=== PATIENT | male | born 1940 | race Caucasian/White ===

== ENCOUNTER 2017-08-01 20:29 | Inpatient (IN) ==
[2017-08-01] MEDS ORDERED: methylPREDNISolone SOD SUC 125 MG/2 ML VIAL IV STA (21:00)
[2017-08-01] MEDS ORDERED: ORPHENADRINE 60 MG/2 ML VIAL IV STA (21:00)
[2017-08-01] MEDS ORDERED: MEPERIDINE 25 MG/1 ML VIAL IV STA (21:00)
[2017-08-01] MEDS ORDERED: ONDANSETRON 4 MG/2 ML VIAL IV STA (21:00)
[2017-08-01 22:11] LABS: Basophils % 0.3 % (0.0-0.8); Eosinophils % 0.1 % (0.00-10.9); Hemoglobin 13.3 GM/DL (14.0-18.0); Immature Granulocytes % 1.2 %; Immature Granulocytes Absolute 0.13 #; Lymphocytes # 0.9 10*3/uL (1.4-4.0); Lymphocytes % 8.6 % (21.2-54.2); Mean Corpuscular HGB Conc 32.4 GM/DL (32-36); Mean Corpuscular Hemoglobin 31 PG (27-34); Mean Corpuscular Volume 96.7 FL (87-102); Mean Platelet Volume 11.2 FL (9.6-12.0); Monocytes # 1.6 10*3/uL (0.11-0.8); Monocytes % 14.3 % (1.7-12.7); Neutrophils # 8.3 10*3/uL (1.4-7.4); Neutrophils % 75.5 % (38.7-73.9); Platelet Count 244 T/CUMM (130-400); Red Blood Count 4.24 MC/CUMM (3.8-5.5); Red Cell Distribution Width 13.4 % (9.3-17.3)
[2017-08-01 22:20] LABS: PT Patient Result 10.7 SECS; Partial Thromboplastin Time 25.7 SECS (0-40)
[2017-08-01 22:40] LABS: Alanine Aminotransferase 37 U/L (16-61); Albumin 3.2 G/DL (3.4-5.0); Alkaline Phosphatase 109 U/L (45-117); Aspartate Amino Transferase 24 U/L (0-37); Blood Urea Nitrogen 34 MG/DL (7-18); Calcium 10.1 MG/DL (8.5-10.1); Glucose 124 MG/DL (74-106); Osmolality,Calculated 274.4 MOS/KG (273-304); Potassium 4.9 MMOL/L (3.5-5.1); Sodium 133 MMOL/L (136-145); Total Protein 7.3 G/DL (6.4-8.3); Troponin I Only < 0.015 NG/ML (0.00-0.045)
[2017-08-01] MEDS ORDERED: SODIUM CHLORIDE 0.9% 1,000 ML IV STA (22:49)
[2017-08-02] MEDS ORDERED: ONDANSETRON 4 MG/2 ML VIAL IV PRN (01:11)
[2017-08-02] MEDS ORDERED: ALBUTEROL/IPRATROPIUM 3 ML NEB RESP TX PRN (01:11)
[2017-08-02] MEDS ORDERED: HYDROmorphone 2 MG/1 ML VIAL IV PRN (01:11)
[2017-08-02] MEDS: tiZANidine 4 MG TABLET PO SCH ×3 (09:37→21:02)
[2017-08-02] MEDS ORDERED: traMADol 50 MG TABLET PO PRN (09:39)
[2017-08-02] MEDS ORDERED: NEBIVOLOL 5 MG TABLET PO SCH ×2 (09:45→17:00)
[2017-08-02] MEDS ORDERED: CALCIUM ACETATE 667 MG CAPSULE PO SCH ×2 (09:45→16:30)
[2017-08-02] MEDS ORDERED: GABAPENTIN 300 MG CAPSULE PO SCH (10:00)
[2017-08-02] MEDS ORDERED: MAGNESIUM OXIDE 400 MG TABLET PO SCH ×2 (10:00→17:00)
[2017-08-02] MEDS ORDERED: ALLOPURINOL 100 MG TABLET PO SCH (10:00)
[2017-08-02] MEDS ORDERED: methylPREDNISolone SOD SUC 125 MG/2 ML VIAL IV SCH (10:00)
[2017-08-02] MEDS ORDERED: MYCOPHENOLATE MOFETIL 250 MG CAPSULE PO SCH ×4 (11:30→21:00)
[2017-08-02] MEDS ORDERED: CYANOCOBALAMIN 1000 MCG/1 ML VIAL IM SCH (12:00)
[2017-08-02] MEDS: ESCITALOPRAM 10 MG TABLET PO SCH (12:34)
[2017-08-02] MEDS: LIDOCAINE 5% PATCH TRANSDERM SCH (12:41)
[2017-08-02] MEDS: PANTOPRAZOLE 40 MG TABLET PO SCH (13:00)
[2017-08-02] MEDS: GABAPENTIN 300 MG CAPSULE PO SCH ×2 (15:55→22:20)
[2017-08-02] MEDS: ALLOPURINOL 100 MG TABLET PO SCH (17:22)
[2017-08-02] MEDS: methylPREDNISolone SOD SUC 40 MG/1 ML VIAL IV SCH (21:02)
[2017-08-03 06:05] LABS: Basophils % 0.1 % (0.0-0.8); Hematocrit 35.6 VOL% (42.0-52.0); Hemoglobin 12.2 GM/DL (14.0-18.0); Immature Granulocytes % 0.8 %; Immature Granulocytes Absolute 0.08 #; Lymphocytes # 0.7 10*3/uL (1.4-4.0); Lymphocytes % 6.4 % (21.2-54.2); Mean Corpuscular HGB Conc 34.3 GM/DL (32-36); Mean Corpuscular Hemoglobin 32 PG (27-34); Mean Corpuscular Volume 93.7 FL (87-102); Monocytes # 0.5 10*3/uL (0.11-0.8); Monocytes % 4.6 % (1.7-12.7); Neutrophils # 8.9 10*3/uL (1.4-7.4); Neutrophils % 88.1 % (38.7-73.9); Platelet Count 248 T/CUMM (130-400); White Blood Count 10.1 T/CUMM (4-12)
[2017-08-03 06:21] LABS: Calcium 9.7 MG/DL (8.5-10.1); Osmolality,Calculated 287.8 MOS/KG (273-304); Potassium 4.7 MMOL/L (3.5-5.1)
[2017-08-03] MEDS: tiZANidine 4 MG TABLET PO SCH (09:40)
[2017-08-03] MEDS: GABAPENTIN 300 MG CAPSULE PO SCH (09:41)
[2017-08-03] MEDS: ESCITALOPRAM 10 MG TABLET PO SCH (09:42)
[2017-08-03] MEDS: PANTOPRAZOLE 40 MG TABLET PO SCH (09:42)
[2017-08-03] MEDS: LIDOCAINE 5% PATCH TRANSDERM SCH (09:43)
[2017-08-03] MEDS: methylPREDNISolone SOD SUC 40 MG/1 ML VIAL IV SCH (09:44)
[2017-08-03 11:03] VITALS: BP 111/67
[2017-08-03] MEDS: ALLOPURINOL 100 MG TABLET PO SCH (12:35)
== END 2017-08-03 13:30 | disposition home or self-care (01) | DRG 552 ==
LOC: N.ED 20:29 → N.EDINP 08-02 01:09 → N.3E 08-02 02:13
PROVIDERS: ADMIT Internal Medicine; ATTEND Internal Medicine

== ENCOUNTER 2018-05-10 22:10 | Inpatient (IN) ==
[2018-05-10] MEDS ORDERED: SODIUM CHLORIDE 0.9% 1,000 ML IV STA (22:19)
[2018-05-10] MEDS ORDERED: ACETAMINOPHEN 500 MG TABLET PO STA (22:19)
[2018-05-10 23:30] LABS: Basophils % 0.2 % (0.0-0.8); Hematocrit 42.6 VOL% (42.0-52.0); Hemoglobin 13.6 GM/DL (14.0-18.0); Immature Granulocytes % 0.6 %; Immature Granulocytes Absolute 0.09 #; Lymphocytes % 6.8 % (21.2-54.2); Mean Corpuscular HGB Conc 31.9 GM/DL (32-36); Mean Corpuscular Hemoglobin 32 PG (27-34); Mean Corpuscular Volume 99.3 FL (87-102); Mean Platelet Volume 10.6 FL (9.6-12.0); Monocytes # 1.9 10*3/uL (0.11-0.8); Monocytes % 13.2 % (1.7-12.7); Neutrophils # 11.2 10*3/uL (1.4-7.4); Neutrophils % 79.2 % (38.7-73.9); Platelet Count 165 T/CUMM (130-400); Red Blood Count 4.29 MC/CUMM (3.8-5.5); Red Cell Distribution Width 13.8 % (9.3-17.3); White Blood Count 14.1 T/CUMM (4-12)
[2018-05-11 00:06] LABS: Bilirubin,Total 1.84 MG/DL (0.2-1.0); Calcium 10.2 MG/DL (8.5-10.1); Total Protein 7.9 G/DL (6.4-8.3)
[2018-05-11 00:07] LABS: Albumin 3.4 G/DL (3.4-5.0); Osmolality,Calculated 271.5 MOS/KG (273-304); Potassium 4.5 MMOL/L (3.5-5.1)
[2018-05-11] MEDS ORDERED: ONDANSETRON 4 MG/2 ML VIAL IV PRN (00:22)
[2018-05-11] MEDS ORDERED: LEVOFLOXACIN INJ 750 MG in PREMIX 1 EACH IV STA (00:22)
[2018-05-11] MEDS ORDERED: ACETAMINOPHEN 325 MG TABLET PO PRN (00:22)
[2018-05-11] MEDS: DEXTROSE 5% NACL 0.45% 1,000 ML IV SCH ×2 (01:50→10:00)
[2018-05-11] MEDS: PANTOPRAZOLE 40 MG TABLET PO SCH (08:24)
[2018-05-11] MEDS: DOCUSATE SODIUM 100 MG CAPSULE PO SCH ×2 (08:24→20:17)
[2018-05-11] MEDS: CYCLOBENZAPRINE 10 MG TABLET PO PRN ×2 (08:24→20:17)
[2018-05-11 08:48] LABS: Basophils % 0.2 % (0.0-0.8); Eosinophils % 0.3 % (0.00-10.9); Hematocrit 41.4 VOL% (42.0-52.0); Immature Granulocytes % 0.5 %; Immature Granulocytes Absolute 0.06 #; Lymphocytes # 1.5 10*3/uL (1.4-4.0); Lymphocytes % 13.2 % (21.2-54.2); Mean Corpuscular HGB Conc 31.4 GM/DL (32-36); Mean Corpuscular Hemoglobin 32 PG (27-34); Monocytes # 1.5 10*3/uL (0.11-0.8); Neutrophils # 8.3 10*3/uL (1.4-7.4); Neutrophils % 72.8 % (38.7-73.9); Platelet Count 160 T/CUMM (130-400); Red Cell Distribution Width 13.8 % (9.3-17.3); White Blood Count 11.4 T/CUMM (4-12)
[2018-05-11 09:23] LABS: Calcium 9.3 MG/DL (8.5-10.1); Osmolality,Calculated 269.5 MOS/KG (273-304); Potassium 3.6 MMOL/L (3.5-5.1)
[2018-05-11] MEDS: CALCIUM ACETATE 667 MG CAPSULE PO SCH ×2 (10:00→16:01)
[2018-05-11] MEDS: SODIUM CHLORIDE 0.9% 1,000 ML IV SCH (11:30)
[2018-05-11 11:52] LABS: Sedimentation Rate-Westergren 66 MM/HR (0-20)
[2018-05-11 15:26] LABS: Appearance,CSF Clear; Lymphocytes,CSF 100 %; Red Blood Cell,CSF 5 C/CUMM; White Blood Cell,CSF 2 C/CUMM
[2018-05-11] MEDS: GABAPENTIN 300 MG CAPSULE PO SCH ×2 (16:02→20:17)
[2018-05-11] MEDS: cefTRIAXone 2,000 MG in SYRINGE 1 EACH IV SCH (16:03)
[2018-05-11] MEDS: methylPREDNISolone SOD SUC 125 MG/2 ML VIAL IV SCH (16:11)
[2018-05-11] MEDS: MAGNESIUM OXIDE 400 MG TABLET PO SCH (20:17)
[2018-05-11] MEDS: COLESTIPOL 1 GM TABLET PO SCH (20:17)
[2018-05-11] MEDS: MYCOPHENOLATE MOFETIL 250 MG CAPSULE PO SCH (20:17)
[2018-05-12] MEDS: cefTRIAXone 2,000 MG in SYRINGE 1 EACH IV SCH ×2 (04:15→15:20)
[2018-05-12] MEDS: SODIUM CHLORIDE 0.9% 1,000 ML IV SCH (04:17)
[2018-05-12 05:16] LABS: Hematocrit 38.8 VOL% (42.0-52.0); Hemoglobin 12.4 GM/DL (14.0-18.0); Immature Granulocytes % 0.7 %; Immature Granulocytes Absolute 0.05 #; Lymphocytes # 0.5 10*3/uL (1.4-4.0); Lymphocytes % 6.9 % (21.2-54.2); Mean Corpuscular Hemoglobin 32 PG (27-34); Mean Platelet Volume 11.1 FL (9.6-12.0); Monocytes # 0.3 10*3/uL (0.11-0.8); Monocytes % 4.5 % (1.7-12.7); Neutrophils # 6.7 10*3/uL (1.4-7.4); Neutrophils % 87.9 % (38.7-73.9); Platelet Count 170 T/CUMM (130-400); Red Blood Count 3.92 MC/CUMM (3.8-5.5); Red Cell Distribution Width 13.6 % (9.3-17.3); White Blood Count 7.6 T/CUMM (4-12)
[2018-05-12 05:43] LABS: Calcium 9.2 MG/DL (8.5-10.1); Osmolality,Calculated 275.4 MOS/KG (273-304); Potassium 4.4 MMOL/L (3.5-5.1)
[2018-05-12] MEDS: methylPREDNISolone SOD SUC 125 MG/2 ML VIAL IV SCH (06:00)
[2018-05-12] MEDS: MYCOPHENOLATE MOFETIL 250 MG CAPSULE PO SCH ×2 (09:41→20:12)
[2018-05-12] MEDS: GABAPENTIN 300 MG CAPSULE PO SCH ×3 (09:41→20:12)
[2018-05-12] MEDS: PANTOPRAZOLE 40 MG TABLET PO SCH (09:41)
[2018-05-12] MEDS: COLESTIPOL 1 GM TABLET PO SCH ×2 (09:42→20:13)
[2018-05-12] MEDS: POLYCARBOPHIL 625 MG TABLET PO SCH (09:42)
[2018-05-12] MEDS: MAGNESIUM OXIDE 400 MG TABLET PO SCH ×2 (09:42→20:13)
[2018-05-12] MEDS: ESCITALOPRAM 10 MG TABLET PO SCH (09:42)
[2018-05-12] MEDS: ALLOPURINOL 300 MG TABLET PO SCH (09:43)
[2018-05-12] MEDS: NEBIVOLOL 5 MG TABLET PO SCH (09:43)
[2018-05-12] MEDS: CALCIUM ACETATE 667 MG CAPSULE PO SCH ×2 (09:43→16:56)
[2018-05-12] MEDS: predniSONE 5 MG TABLET PO SCH (09:43)
[2018-05-12] MEDS: DOCUSATE SODIUM 100 MG CAPSULE PO SCH ×2 (09:43→20:13)
[2018-05-12] MEDS: methylPREDNISolone SOD SUC 40 MG/1 ML VIAL IV SCH (15:19)
[2018-05-13] MEDS: methylPREDNISolone SOD SUC 40 MG/1 ML VIAL IV SCH (03:35)
[2018-05-13] MEDS: cefTRIAXone 2,000 MG in SYRINGE 1 EACH IV SCH (03:36)
[2018-05-13] MEDS: SODIUM CHLORIDE 0.9% 1,000 ML IV SCH ×3 (03:40→03:42)
[2018-05-13 06:01] LABS: Basophils % 0.1 % (0.0-0.8); Hematocrit 37.1 VOL% (42.0-52.0); Hemoglobin 11.9 GM/DL (14.0-18.0); Immature Granulocytes % 0.6 %; Immature Granulocytes Absolute 0.08 #; Lymphocytes # 0.7 10*3/uL (1.4-4.0); Lymphocytes % 5.1 % (21.2-54.2); Mean Corpuscular HGB Conc 32.1 GM/DL (32-36); Mean Corpuscular Hemoglobin 32 PG (27-34); Mean Corpuscular Volume 98.7 FL (87-102); Monocytes # 0.7 10*3/uL (0.11-0.8); Monocytes % 5.2 % (1.7-12.7); Neutrophils # 11.4 10*3/uL (1.4-7.4); Platelet Count 197 T/CUMM (130-400); Red Blood Count 3.76 MC/CUMM (3.8-5.5); Red Cell Distribution Width 13.6 % (9.3-17.3); White Blood Count 12.8 T/CUMM (4-12)
[2018-05-13 06:17] LABS: Calcium 9.2 MG/DL (8.5-10.1); Osmolality,Calculated 290.4 MOS/KG (273-304); Potassium 4.3 MMOL/L (3.5-5.1)
[2018-05-13] MEDS: ESCITALOPRAM 10 MG TABLET PO SCH (08:41)
[2018-05-13] MEDS: MYCOPHENOLATE MOFETIL 250 MG CAPSULE PO SCH ×2 (08:41→21:18)
[2018-05-13] MEDS: ALLOPURINOL 300 MG TABLET PO SCH (08:41)
[2018-05-13] MEDS: COLESTIPOL 1 GM TABLET PO SCH ×2 (08:41→21:18)
[2018-05-13] MEDS: POLYCARBOPHIL 625 MG TABLET PO SCH (08:41)
[2018-05-13] MEDS: CALCIUM ACETATE 667 MG CAPSULE PO SCH ×2 (08:41→16:24)
[2018-05-13] MEDS: MAGNESIUM OXIDE 400 MG TABLET PO SCH ×2 (08:41→21:18)
[2018-05-13] MEDS: NEBIVOLOL 5 MG TABLET PO SCH (08:42)
[2018-05-13] MEDS: PANTOPRAZOLE 40 MG TABLET PO SCH (08:42)
[2018-05-13] MEDS: GABAPENTIN 300 MG CAPSULE PO SCH ×3 (08:42→21:18)
[2018-05-13] MEDS: predniSONE 5 MG TABLET PO SCH (08:42)
[2018-05-13] MEDS: DOCUSATE SODIUM 100 MG CAPSULE PO SCH ×2 (10:25→21:18)
[2018-05-13] MEDS: predniSONE 20 MG TABLET PO SCH (21:18)
[2018-05-14 06:08] LABS: Basophils % 0.1 % (0.0-0.8); Hematocrit 38.5 VOL% (42.0-52.0); Hemoglobin 12.2 GM/DL (14.0-18.0); Immature Granulocytes % 0.8 %; Immature Granulocytes Absolute 0.08 #; Lymphocytes # 0.5 10*3/uL (1.4-4.0); Lymphocytes % 5.5 % (21.2-54.2); Mean Corpuscular HGB Conc 31.7 GM/DL (32-36); Mean Corpuscular Hemoglobin 31 PG (27-34); Mean Platelet Volume 11.2 FL (9.6-12.0); Monocytes # 0.3 10*3/uL (0.11-0.8); Monocytes % 2.8 % (1.7-12.7); Neutrophils # 8.6 10*3/uL (1.4-7.4); Neutrophils % 90.8 % (38.7-73.9); Platelet Count 217 T/CUMM (130-400); Red Blood Count 3.89 MC/CUMM (3.8-5.5); Red Cell Distribution Width 13.8 % (9.3-17.3); White Blood Count 9.5 T/CUMM (4-12)
[2018-05-14 06:32] LABS: Hypochromasia 1+; Lymphocytes 4 % (20-55); Platelet Estimate Adequate; Segmented Neutrophils 95 % (50-85); Total Cells Counted 100
[2018-05-14 06:39] LABS: Calcium 9.3 MG/DL (8.5-10.1); Osmolality,Calculated 294.3 MOS/KG (273-304)
[2018-05-14] MEDS: predniSONE 20 MG TABLET PO SCH (08:36)
[2018-05-14] MEDS: MYCOPHENOLATE MOFETIL 250 MG CAPSULE PO SCH (08:36)
[2018-05-14] MEDS: ESCITALOPRAM 10 MG TABLET PO SCH (08:36)
[2018-05-14] MEDS: COLESTIPOL 1 GM TABLET PO SCH (08:36)
[2018-05-14] MEDS: GABAPENTIN 300 MG CAPSULE PO SCH (08:36)
[2018-05-14] MEDS: DOCUSATE SODIUM 100 MG CAPSULE PO SCH (08:36)
[2018-05-14] MEDS: NEBIVOLOL 5 MG TABLET PO SCH (08:36)
[2018-05-14] MEDS: MAGNESIUM OXIDE 400 MG TABLET PO SCH (08:37)
[2018-05-14] MEDS: CALCIUM ACETATE 667 MG CAPSULE PO SCH (08:37)
[2018-05-14] MEDS: POLYCARBOPHIL 625 MG TABLET PO SCH (08:37)
[2018-05-14] MEDS: ALLOPURINOL 300 MG TABLET PO SCH (08:37)
[2018-05-14] MEDS: PANTOPRAZOLE 40 MG TABLET PO SCH (08:37)
[2018-05-14 12:46] VITALS: BP 133/90
== END 2018-05-14 10:30 | disposition home or self-care (01) | DRG 552 ==
LOC: EDBD → EDUNIT# → N.EDINP 22:10 → N.ED 22:10 → N.5E 05-11 00:40
PROVIDERS: ADMIT Internal Medicine; ATTEND Internal Medicine

== ENCOUNTER 2022-02-12 17:51 | Inpatient (IN) ==
[2022-02-12 18:08] LABS: Basophils % 0.3 % (0.0-0.8); Eosinophils # 0.1 10*3/uL (0.0-0.87); Eosinophils % 1.2 % (0.00-10.9); Hemoglobin 9.2 GM/DL (14.0-18.0); Immature Granulocytes % 0.9 %; Immature Granulocytes Absolute 0.08 #; Lymphocytes # 2.6 10*3/uL (1.4-4.0); Lymphocytes % 28.2 % (21.2-54.2); Mean Corpuscular HGB Conc 29.7 GM/DL (32-36); Mean Corpuscular Volume 92.5 FL (87-102); Monocytes % 10.9 % (1.7-12.7); Neutrophils % 58.5 % (38.7-73.9); Platelet Count 278 T/CUMM (130-400); Red Blood Count 3.35 MC/CUMM (3.8-5.5); Red Cell Distribution Width 19.5 % (9.3-17.3); White Blood Count 9.3 T/CUMM (4-12)
[2022-02-12 18:33] LABS: Alanine Aminotransferase 26 U/L (16-61); Albumin 3.2 G/DL (3.4-5.0); Alkaline Phosphatase 77 U/L (45-117); Aspartate Amino Transferase 20 U/L (0-37); Blood Urea Nitrogen 42 MG/DL (7-18); Calcium 8.7 MG/DL (8.5-10.1); Carbon Dioxide 18 MMOL/L (21-32); Chloride 111 MMOL/L (98-107); Glucose 128 MG/DL (74-106); Osmolality,Calculated 291.4 MOS/KG (273-304); Potassium 4.4 MMOL/L (3.5-5.1); Sodium 140 MMOL/L (136-145); Total Protein 6.4 G/DL (6.4-8.2)
[2022-02-12] MEDS ORDERED: SODIUM BICARBONATE 50 MEQ/50 ML VIAL IV STA ×2 (18:33→18:50)
[2022-02-12 18:38] LABS: Arterial Base Excess iSTAT -14 MMOL/L (-2.5-2.5); Arterial Bicarbonate iSTAT 14.9 MMOL/L (20-26); Arterial O2 Saturation iSTAT 100 % (95-100); Arterial PCO2 iSTAT 46 MM HG (35-48); Arterial PO2 iSTAT 223 MM HG (80-95); Arterial Total CO2 iSTAT 16 MMO/L (23-27); Arterial pH iSTAT 7.116 (7.35-7.45)
[2022-02-12] MEDS ORDERED: ALBUTEROL 2.5 MG/3 ML NEB RESP TX PRN (18:52)
[2022-02-12] MEDS ORDERED: ACETAMINOPHEN 325 MG TABLET PO PRN (18:53)
[2022-02-12] MEDS ORDERED: ONDANSETRON 4 MG/2 ML VIAL IV PRN (18:53)
[2022-02-12] MEDS: SODIUM CHLORIDE 0.9% 1,000 ML IV SCH (19:16)
[2022-02-12] MEDS: MEROPENEM 500 MG in SODIUM CHLORIDE 0.9% 100 ML IV SCH (20:10)
[2022-02-12] MEDS: DOPamine 800 MG/250 ML PREMIX IV PRN (20:40)
[2022-02-12] MEDS ORDERED: ETOMIDATE 20 MG/10 ML VIAL IV ONE (20:56)
[2022-02-12] MEDS ORDERED: ROCURONIUM 100 MG/10 ML VIAL IV ONE (20:57)
[2022-02-12] MEDS ORDERED: ENOXAPARIN 40 MG/0.4 ML SYRINGE SUBCUT SCH (21:00)
[2022-02-12] MEDS ORDERED: CISATRACURIUM 200 MG in SODIUM CHLORIDE 0.9% 180 ML IV PRN (21:20)
[2022-02-12] MEDS: fentaNYL INJ 1,250 MCG in SODIUM CHLORIDE 0.9% 225 ML IV PRN (21:45)
[2022-02-12 21:47] LABS: ABG Base Excess -8.4 MMOL/L (-2.5-2.5); ABG HCO3 17.6 MMOL/L (20-26); ABG Oxygen Saturation 93.6 % (95-100); ABG PCO2 46.7 MM HG (35-48); ABG PH 7.222 (7.35-7.45); ABG PO2 90.6 MM HG (80-95); ABG TCO2 17.9 MMOL/L (23-27)
[2022-02-12 22:01] LABS: INR 1.2; PT Patient Result 12.8 SECS (10.1-12.1); Partial Thromboplastin Time 25.6 SECS (23.7-32.9)
[2022-02-12 22:26] LABS: Bacteria,Urine Occasional /HPF (Few); Hyaline Casts,Urine 9 /LPF (0-3); Mucus,Urine Occasional /LPF (Occasional); RBC,Urine 44 /HPF (0-4); Squamous Epithelial Cell,Urine Occasional /HPF (0-10); Urine Appearance Clear (Clear); Urine Color Yellow (Yellow); Urine Specific Gravity >= 1.030 (1.001-1.035); Urine pH 5.5 (4.5-8.0)
[2022-02-12 22:27] LABS: Bilirubin,Urine Negative (Negative); Blood, Urine Moderate mg/dL (Negative); Glucose,Urine (UA) Negative (Negative); Ketones,Urine Negative (Negative); Nitrite,Urine Negative (Negative); Protein,Urine 100 mg/dL (Negative); Urine Urobilinogen 0.2 eU/dL (<2.0)
[2022-02-12] MEDS ORDERED: SODIUM BICARBONATE 50 MEQ/50 ML VIAL IV ONE (22:30)
[2022-02-12 22:39] LABS: Alanine Aminotransferase 37 U/L (16-61); Albumin 3.3 G/DL (3.4-5.0); Alkaline Phosphatase 99 U/L (45-117); Amylase 58 U/L (25-115); Aspartate Amino Transferase 50 U/L (0-37); Blood Urea Nitrogen 43 MG/DL (7-18); Calcium 8.3 MG/DL (8.5-10.1); Carbon Dioxide 20 MMOL/L (21-32); Chloride 109 MMOL/L (98-107); Glucose 246 MG/DL (74-106); Osmolality,Calculated 299.3 MOS/KG (273-304); Phosphorous 5.8 MG/DL (2.5-4.9); Potassium 4.7 MMOL/L (3.5-5.1); Sodium 141 MMOL/L (136-145); Total Protein 6.2 G/DL (6.4-8.2)
[2022-02-12] MEDS: MIDAZOLAM DRIP 100 MG/100 ML PREMIX IV PRN (23:19)
[2022-02-12] MEDS: INSULIN REGULAR 100 UNIT/ML IV SCH (23:20)
[2022-02-12 23:35] LABS: ABG Base Excess -5.6 MMOL/L (-2.5-2.5); ABG HCO3 19.7 MMOL/L (20-26); ABG Oxygen Saturation 93.2 % (95-100); ABG PH 7.243 (7.35-7.45); ABG PO2 86.2 MM HG (80-95); ABG TCO2 20.5 MMOL/L (23-27)
[2022-02-12] MEDS: FAMOTIDINE 20 MG/2 ML VIAL IV SCH (23:46)
[2022-02-12] MEDS: MYCOPHENOLATE MOFETIL 250 MG CAPSULE PO SCH (23:51)
[2022-02-12] MEDS: ENOXAPARIN 80 MG/0.8 ML SYRINGE SUBCUT SCH (23:52)
[2022-02-13] MEDS: LEVOFLOXACIN INJ 750 MG/150 ML PREMIX IV SCH
[2022-02-13] MEDS: ALBUTEROL/IPRATROPIUM 3 ML NEB RESP TX SCH ×5 (01:21→18:53)
[2022-02-13] MEDS: INSULIN REGULAR 100 UNIT/ML IV SCH ×6 (01:49→21:19)
[2022-02-13] MEDS ORDERED: SODIUM CHLORIDE 0.9% 500 ML IV ONE (02:35)
[2022-02-13 03:43] LABS: ABG HCO3 20.3 MMOL/L (20-26); ABG Oxygen Saturation 98.8 % (95-100); ABG PCO2 48.5 MM HG (35-48); ABG PH 7.267 (7.35-7.45); ABG TCO2 20.5 MMOL/L (23-27)
[2022-02-13 03:46] LABS: Basophils % 0.2 % (0.0-0.8); Eosinophils % 0.1 % (0.00-10.9); Hematocrit 32.6 VOL% (42.0-52.0); Hemoglobin 9.6 GM/DL (14.0-18.0); Immature Granulocytes % 1.1 %; Immature Granulocytes Absolute 0.16 #; Lymphocytes # 0.7 10*3/uL (1.4-4.0); Lymphocytes % 4.7 % (21.2-54.2); Mean Corpuscular HGB Conc 29.4 GM/DL (32-36); Mean Corpuscular Volume 93.4 FL (87-102); Mean Platelet Volume 10.6 FL (9.6-12.0); Monocytes # 1.2 10*3/uL (0.11-0.8); Monocytes % 7.9 % (1.7-12.7); Platelet Count 271 T/CUMM (130-400); Red Blood Count 3.49 MC/CUMM (3.8-5.5); Red Cell Distribution Width 19.3 % (9.3-17.3); White Blood Count 15.1 T/CUMM (4-12)
[2022-02-13] MEDS ORDERED: LACTATED RINGERS 1,000 ML IV ONE (04:00)
[2022-02-13 04:08] LABS: Bilirubin,Total 0.4 MG/DL (0.20-1.00); Calcium 8.1 MG/DL (8.5-10.1); Potassium 3.7 MMOL/L (3.5-5.1)
[2022-02-13 04:32] LABS: Lymphocytes 2 % (20-55); Platelet Estimate Normal; Total Cells Counted 100
[2022-02-13] MEDS: MEROPENEM 500 MG in SODIUM CHLORIDE 0.9% 100 ML IV SCH ×3 (04:51→20:18)
[2022-02-13] MEDS ORDERED: POTASSIUM CHLORIDE RIDER 20 MEQ/100 ML PREMIX IV ONE ×2 (05:00→16:45)
[2022-02-13 06:09] LABS: Calcium 8.3 MG/DL (8.5-10.1); Osmolality,Calculated 297.8 MOS/KG (273-304); Potassium 3.7 MMOL/L (3.5-5.1)
[2022-02-13] MEDS: SODIUM CHLORIDE 0.9% 1,000 ML IV SCH ×4 (06:09→17:57)
[2022-02-13 06:44] LABS: INR 1.3; Partial Thromboplastin Time 32.8 SECS (23.7-32.9)
[2022-02-13] MEDS: predniSONE 5 MG TABLET PO SCH (09:24)
[2022-02-13] MEDS: MYCOPHENOLATE MOFETIL 250 MG CAPSULE PO SCH (09:55)
[2022-02-13 09:57] LABS: INR 1.3; Partial Thromboplastin Time 34.5 SECS (23.7-32.9)
[2022-02-13 10:00] LABS: Calcium 8.6 MG/DL (8.5-10.1); Osmolality,Calculated 297.1 MOS/KG (273-304); Potassium 3.9 MMOL/L (3.5-5.1)
[2022-02-13 10:05] LABS: Basophils % 0.6 % (0.0-0.8); Eosinophils # 0.1 10*3/uL (0.0-0.87); Eosinophils % 1.6 % (0.00-10.9); Hematocrit 36.1 VOL% (42.0-52.0); Immature Granulocytes % 0.6 %; Immature Granulocytes Absolute 0.02 #; Lymphocytes # 0.2 10*3/uL (1.4-4.0); Lymphocytes % 4.8 % (21.2-54.2); Mean Corpuscular HGB Conc 29.6 GM/DL (32-36); Mean Corpuscular Volume 92.3 FL (87-102); Mean Platelet Volume 10.6 FL (9.6-12.0); Monocytes # 0.2 10*3/uL (0.11-0.8); Monocytes % 4.8 % (1.7-12.7); Neutrophils % 87.6 % (38.7-73.9); Platelet Count 273 T/CUMM (130-400); Red Blood Count 3.91 MC/CUMM (3.8-5.5); Red Cell Distribution Width 19.1 % (9.3-17.3)
[2022-02-13 10:06] LABS: White Blood Count 3.1 T/CUMM (4-12)
[2022-02-13 10:07] LABS: Hemoglobin 10.7 GM/DL (14.0-18.0)
[2022-02-13 10:17] LABS: Band Neutrophils 6 % (0-10); Lymphocytes 9 % (20-55); Microcytosis 1+; Total Cells Counted 100
[2022-02-13 10:18] LABS: Polychromasia Slight
[2022-02-13] MEDS: MEPERIDINE 25 MG/1 ML VIAL IV PRN ×3 (11:16→20:19)
[2022-02-13] MEDS: CISATRACURIUM 10 MG/5 ML VIAL IV PRN ×3 (11:43→20:54)
[2022-02-13] MEDS: DOPamine 800 MG/250 ML PREMIX IV PRN (15:09)
[2022-02-13] MEDS: fentaNYL INJ 1,250 MCG in SODIUM CHLORIDE 0.9% 225 ML IV PRN (15:26)
[2022-02-13 16:05] LABS: Basophils % 0.6 % (0.0-0.8); Eosinophils % 0.6 % (0.00-10.9); Hematocrit 36.3 VOL% (42.0-52.0); Hemoglobin 10.8 GM/DL (14.0-18.0); Immature Granulocytes % 0.6 %; Immature Granulocytes Absolute 0.01 #; Lymphocytes # 0.1 10*3/uL (1.4-4.0); Lymphocytes % 3.1 % (21.2-54.2); Mean Corpuscular HGB Conc 29.8 GM/DL (32-36); Mean Corpuscular Volume 93.1 FL (87-102); Mean Platelet Volume 10.2 FL (9.6-12.0); Monocytes # 0.2 10*3/uL (0.11-0.8); Monocytes % 9.3 % (1.7-12.7); Neutrophils % 85.8 % (38.7-73.9); Platelet Count 227 T/CUMM (130-400); White Blood Count 1.6 T/CUMM (4-12)
[2022-02-13 16:15] LABS: INR 1.3; PT Patient Result 14.6 SECS (10.1-12.1); Partial Thromboplastin Time 34.2 SECS (23.7-32.9)
[2022-02-13 16:24] LABS: Calcium 8.4 MG/DL (8.5-10.1); Osmolality,Calculated 297.8 MOS/KG (273-304); Potassium 3.6 MMOL/L (3.5-5.1)
[2022-02-13 16:24] LABS: Band Neutrophils 8 % (0-10); Lymphocytes 4 % (20-55); Platelet Estimate Adequate; Total Cells Counted 100
[2022-02-13 16:26] LABS: Polychromasia Slight
[2022-02-13] MEDS: MIDAZOLAM DRIP 100 MG/100 ML PREMIX IV PRN (17:30)
[2022-02-13] MEDS: FAMOTIDINE 20 MG/2 ML VIAL IV SCH (20:18)
[2022-02-13] MEDS: ENOXAPARIN 80 MG/0.8 ML SYRINGE SUBCUT SCH (21:59)
[2022-02-13 22:03] LABS: Hematocrit 37.7 VOL% (42.0-52.0); Hemoglobin 11.3 GM/DL (14.0-18.0); Immature Granulocytes % 0.8 %; Immature Granulocytes Absolute 0.02 #; Lymphocytes # 0.1 10*3/uL (1.4-4.0); Lymphocytes % 3.3 % (21.2-54.2); Mean Corpuscular Volume 92.6 FL (87-102); Mean Platelet Volume 10.5 FL (9.6-12.0); Monocytes # 0.3 10*3/uL (0.11-0.8); Monocytes % 13.1 % (1.7-12.7); Neutrophils % 82.8 % (38.7-73.9); Platelet Count 243 T/CUMM (130-400); Red Blood Count 4.07 MC/CUMM (3.8-5.5); White Blood Count 2.4 T/CUMM (4-12)
[2022-02-13 22:14] LABS: INR 1.3; PT Patient Result 14.5 SECS (10.1-12.1); Partial Thromboplastin Time 35.6 SECS (23.7-32.9)
[2022-02-13 22:27] LABS: Calcium 8.4 MG/DL (8.5-10.1); Osmolality,Calculated 298.7 MOS/KG (273-304); Potassium 3.6 MMOL/L (3.5-5.1)
[2022-02-13 22:30] LABS: Band Neutrophils 18 % (0-10); Lymphocytes 1 % (20-55); Nucleated Red Blood Cells 2 /100 WBC (0-5); Total Cells Counted 100
[2022-02-13 22:31] LABS: Platelet Estimate Adequate; Polychromasia Slight
[2022-02-13 22:32] LABS: Hypochromia Slight
[2022-02-13 23:48] LABS: ABG Base Excess -7.1 MMOL/L (-2.5-2.5); ABG HCO3 18.6 MMOL/L (20-26); ABG Oxygen Saturation 91.2 % (95-100); ABG PCO2 41.1 MM HG (35-48); ABG PH 7.281 (7.35-7.45); ABG PO2 70.5 MM HG (80-95); ABG TCO2 17.6 MMOL/L (23-27)
[2022-02-14] MEDS ORDERED: FUROSEMIDE 40 MG/4 ML VIAL IV ONE (00:06)
[2022-02-14] MEDS: ALBUTEROL/IPRATROPIUM 3 ML NEB RESP TX SCH ×4 (00:26→19:33)
[2022-02-14] MEDS: CISATRACURIUM 10 MG/5 ML VIAL IV PRN ×2 (00:51→06:03)
[2022-02-14] MEDS: SODIUM CHLORIDE 0.9% 1,000 ML IV SCH ×4 (02:00→20:29)
[2022-02-14] MEDS: INSULIN REGULAR 100 UNIT/ML IV SCH ×6 (02:14→21:13)
[2022-02-14] MEDS: MEROPENEM 500 MG in SODIUM CHLORIDE 0.9% 100 ML IV SCH ×3 (03:40→20:29)
[2022-02-14] MEDS: DOPamine 800 MG/250 ML PREMIX IV PRN ×3 (03:40→17:34)
[2022-02-14 03:42] LABS: ABG Base Excess -7.3 MMOL/L (-2.5-2.5); ABG HCO3 18.5 MMOL/L (20-26); ABG Oxygen Saturation 96.1 % (95-100); ABG PCO2 40.8 MM HG (35-48); ABG PH 7.279 (7.35-7.45); ABG PO2 94.8 MM HG (80-95); ABG TCO2 17.4 MMOL/L (23-27)
[2022-02-14 03:45] LABS: Basophils % 0.3 % (0.0-0.8); Eosinophils % 0.3 % (0.00-10.9); Hematocrit 38.1 VOL% (42.0-52.0); Hemoglobin 11.4 GM/DL (14.0-18.0); Immature Granulocytes % 0.9 %; Immature Granulocytes Absolute 0.03 #; Lymphocytes # 0.1 10*3/uL (1.4-4.0); Mean Corpuscular HGB Conc 29.9 GM/DL (32-36); Mean Corpuscular Volume 92.5 FL (87-102); Mean Platelet Volume 10.2 FL (9.6-12.0); Monocytes # 0.3 10*3/uL (0.11-0.8); Monocytes % 9.4 % (1.7-12.7); NRBC # 0.02 10*3/uL; Neutrophils % 87.1 % (38.7-73.9); Platelet Count 245 T/CUMM (130-400); Red Blood Count 4.12 MC/CUMM (3.8-5.5); Red Cell Distribution Width 19.2 % (9.3-17.3); White Blood Count 3.5 T/CUMM (4-12)
[2022-02-14 04:05] LABS: INR 1.4; PT Patient Result 15.2 SECS (10.1-12.1); Partial Thromboplastin Time 39.1 SECS (23.7-32.9)
[2022-02-14 04:13] LABS: Calcium 8.1 MG/DL (8.5-10.1); Osmolality,Calculated 298.7 MOS/KG (273-304); Potassium 3.9 MMOL/L (3.5-5.1)
[2022-02-14 04:15] LABS: Band Neutrophils 4 % (0-10); Hypochromia Slight; Lymphocytes 14 % (20-55); Polychromasia Slight; Total Cells Counted 100
[2022-02-14] MEDS ORDERED: MAGNESIUM SULF RIDER 1 GM/100 ML PREMIX IV ONE (04:22)
[2022-02-14] MEDS: MEPERIDINE 25 MG/1 ML VIAL IV PRN (04:35)
[2022-02-14] MEDS: MIDAZOLAM DRIP 100 MG/100 ML PREMIX IV PRN ×2 (08:18→21:48)
[2022-02-14] MEDS ORDERED: LACTATED RINGERS 500 ML IV ONE (08:53)
[2022-02-14] MEDS ORDERED: MAGNESIUM SULF RIDER 2 GM/50 ML PREMIX IV ONE (09:05)
[2022-02-14] MEDS ORDERED: VASOPRESSIN 100 UNITS in SODIUM CHLORIDE 0.9% 95 ML IV PRN (09:30)
[2022-02-14] MEDS: fentaNYL INJ 1,250 MCG in SODIUM CHLORIDE 0.9% 225 ML IV PRN (09:38)
[2022-02-14] MEDS: MINERAL OIL/PETROLATUM OPH OINT 3.5 GM TUBE BOTH EYES SCH ×3 (09:57→20:30)
[2022-02-14 11:48] LABS: Basophils % 0.2 % (0.0-0.8); Eosinophils % 0.2 % (0.00-10.9); Hematocrit 37.2 VOL% (42.0-52.0); Immature Granulocytes % 0.6 %; Immature Granulocytes Absolute 0.04 #; Lymphocytes # 0.1 10*3/uL (1.4-4.0); Lymphocytes % 1.8 % (21.2-54.2); Mean Corpuscular HGB Conc 29.6 GM/DL (32-36); Mean Corpuscular Volume 93.2 FL (87-102); Mean Platelet Volume 10.9 FL (9.6-12.0); Monocytes # 0.6 10*3/uL (0.11-0.8); Monocytes % 8.9 % (1.7-12.7); NRBC # 0.03 10*3/uL; Neutrophils % 88.3 % (38.7-73.9); Platelet Count 243 T/CUMM (130-400); Red Blood Count 3.99 MC/CUMM (3.8-5.5); Red Cell Distribution Width 19.2 % (9.3-17.3); White Blood Count 6.3 T/CUMM (4-12)
[2022-02-14] MEDS: predniSONE 5 MG TABLET PO SCH ×2 (11:57→14:31)
[2022-02-14 11:58] LABS: Anisocytosis Slight; Band Neutrophils 36 % (0-10); Burr Cells Few; Lymphocytes 4 % (20-55); Metamyelocytes 2 %; Platelet Estimate Normal; Total Cells Counted 100
[2022-02-14 11:59] LABS: Macrocytosis Slight
[2022-02-14 12:18] LABS: INR 1.4
[2022-02-14 12:22] LABS: Calcium 7.9 MG/DL (8.5-10.1); Osmolality,Calculated 296.8 MOS/KG (273-304); Potassium 4.9 MMOL/L (3.5-5.1)
[2022-02-14] MEDS ORDERED: EPINEPHrine 1 MG/10 ML SYRINGE IV ONE (12:22)
[2022-02-14] MEDS ORDERED: SODIUM BICARBONATE 50 MEQ/50 ML SYRINGE IV ONE (12:23)
[2022-02-14] MEDS ORDERED: HYDROCORTISONE 100 MG VIAL IV SCH (12:30)
[2022-02-14] MEDS ORDERED: EPINEPHrine 1 MG/ML VIAL ONE (12:49)
[2022-02-14 14:11] LABS: ABG Base Excess -9.3 MMOL/L (-2.5-2.5); ABG PCO2 45.3 MM HG (35-48); ABG PH 7.217 (7.35-7.45); ABG PO2 85.1 MM HG (80-95)
[2022-02-14 14:27] VITALS: BP 185/92
[2022-02-14 14:32] LABS: Basophils % 0.2 % (0.0-0.8); Eosinophils % 0.1 % (0.00-10.9); Hematocrit 36.7 VOL% (42.0-52.0); Hemoglobin 10.8 GM/DL (14.0-18.0); Immature Granulocytes Absolute 0.09 #; Lymphocytes # 0.2 10*3/uL (1.4-4.0); Lymphocytes % 2.2 % (21.2-54.2); Mean Corpuscular HGB Conc 29.4 GM/DL (32-36); Mean Corpuscular Volume 93.9 FL (87-102); Mean Platelet Volume 11.1 FL (9.6-12.0); Monocytes # 0.9 10*3/uL (0.11-0.8); NRBC # 0.08 10*3/uL; Neutrophils % 86.5 % (38.7-73.9); Platelet Count 236 T/CUMM (130-400); Red Blood Count 3.91 MC/CUMM (3.8-5.5); Red Cell Distribution Width 19.3 % (9.3-17.3); White Blood Count 8.7 T/CUMM (4-12)
[2022-02-14 14:34] LABS: Albumin 2.3 G/DL (3.4-5.0); Bilirubin,Total 0.4 MG/DL (0.20-1.00); Osmolality,Calculated 297.7 MOS/KG (273-304); Phosphorous 6.2 MG/DL (2.5-4.9); Potassium 4.9 MMOL/L (3.5-5.1); Total Protein 5.2 G/DL (6.4-8.2)
[2022-02-14] MEDS: HYDROCORTISONE 100 MG VIAL IV SCH ×3 (14:44→23:50)
[2022-02-14 15:07] LABS: INR 1.4; PT Patient Result 15.6 SECS (10.1-12.1); Partial Thromboplastin Time 38.7 SECS (23.7-32.9)
[2022-02-14 15:09] LABS: Band Neutrophils 6 % (0-10); Lymphocytes 6 % (20-55); Total Cells Counted 100
[2022-02-14 15:10] LABS: Burr Cells Slight; Platelet Estimate Normal
[2022-02-14] MEDS ORDERED: DEXTROSE 50% 25 GM/50 ML SYRINGE IV ONE (16:51)
[2022-02-14 19:15] LABS: ABG Base Excess -6.4 MMOL/L (-2.5-2.5); ABG HCO3 19.2 MMOL/L (20-26); ABG Oxygen Saturation 98.7 % (95-100); ABG PCO2 39.3 MM HG (35-48); ABG PH 7.305 (7.35-7.45); ABG TCO2 17.9 MMOL/L (23-27)
[2022-02-14 19:40] LABS: Basophils % 0.1 % (0.0-0.8); Hematocrit 35.8 VOL% (42.0-52.0); Hemoglobin 10.6 GM/DL (14.0-18.0); Immature Granulocytes % 1.6 %; Immature Granulocytes Absolute 0.12 #; Lymphocytes # 0.2 10*3/uL (1.4-4.0); Lymphocytes % 3.2 % (21.2-54.2); Mean Corpuscular HGB Conc 29.6 GM/DL (32-36); Mean Corpuscular Volume 93.5 FL (87-102); Mean Platelet Volume 11.1 FL (9.6-12.0); Monocytes # 0.4 10*3/uL (0.11-0.8); Monocytes % 5.7 % (1.7-12.7); NRBC # 0.07 10*3/uL; Neutrophils % 89.4 % (38.7-73.9); Platelet Count 208 T/CUMM (130-400); Red Blood Count 3.83 MC/CUMM (3.8-5.5); Red Cell Distribution Width 19.2 % (9.3-17.3); White Blood Count 7.4 T/CUMM (4-12)
[2022-02-14 19:51] LABS: Calcium 7.9 MG/DL (8.5-10.1); Osmolality,Calculated 301.7 MOS/KG (273-304)
[2022-02-14 19:54] LABS: High Sensitive Troponin I* 120.6 ng/L (0-78)
[2022-02-14] MEDS: FAMOTIDINE 20 MG/2 ML VIAL IV SCH (20:29)
[2022-02-14 20:31] LABS: Band Neutrophils 14 % (0-10); Lymphocytes 3 % (20-55); Metamyelocytes 1 %; Nucleated Red Blood Cells 3 /100 WBC (0-5); Total Cells Counted 100
[2022-02-14 20:32] LABS: Burr Cells Slight; Platelet Estimate Normal
[2022-02-14] MEDS: ENOXAPARIN 80 MG/0.8 ML SYRINGE SUBCUT SCH (21:59)
[2022-02-14] MEDS: LEVOFLOXACIN INJ 750 MG/150 ML PREMIX IV SCH (23:47)
[2022-02-15] MEDS: fentaNYL INJ 1,250 MCG in SODIUM CHLORIDE 0.9% 225 ML IV PRN (00:34)
[2022-02-15] MEDS: INSULIN REGULAR 100 UNIT/ML IV SCH ×6 (02:13→21:55)
[2022-02-15] MEDS: ALBUTEROL/IPRATROPIUM 3 ML NEB RESP TX SCH ×5 (02:17→23:40)
[2022-02-15] MEDS: MEROPENEM 500 MG in SODIUM CHLORIDE 0.9% 100 ML IV SCH ×3 (03:34→21:55)
[2022-02-15 03:50] LABS: ABG Base Excess -9.5 MMOL/L (-2.5-2.5); ABG HCO3 16.9 MMOL/L (20-26); ABG Oxygen Saturation 97.9 % (95-100); ABG PCO2 25.8 MM HG (35-48); ABG PH 7.363 (7.35-7.45); ABG TCO2 13.3 MMOL/L (23-27)
[2022-02-15 03:59] LABS: Basophils % 0.2 % (0.0-0.8); Hematocrit 34.4 VOL% (42.0-52.0); Hemoglobin 10.5 GM/DL (14.0-18.0); Immature Granulocytes % 4.1 %; Immature Granulocytes Absolute 0.46 #; Lymphocytes # 0.2 10*3/uL (1.4-4.0); Lymphocytes % 1.9 % (21.2-54.2); Mean Corpuscular HGB Conc 30.5 GM/DL (32-36); Mean Corpuscular Volume 92.5 FL (87-102); Mean Platelet Volume 11.4 FL (9.6-12.0); Monocytes # 0.7 10*3/uL (0.11-0.8); Monocytes % 5.8 % (1.7-12.7); NRBC # 0.07 10*3/uL; Platelet Count 214 T/CUMM (130-400); Red Blood Count 3.72 MC/CUMM (3.8-5.5); Red Cell Distribution Width 19.5 % (9.3-17.3); White Blood Count 11.2 T/CUMM (4-12)
[2022-02-15 04:20] LABS: Band Neutrophils 5 % (0-10); Eosinophils 1 % (0-10); Hypochromia Slight; Lymphocytes 4 % (20-55); Nucleated Red Blood Cells 1 /100 WBC (0-5); Platelet Estimate Normal; Total Cells Counted 100
[2022-02-15 04:28] LABS: High Sensitive Troponin I* 108.1 ng/L (0-78)
[2022-02-15] MEDS: DEXTROSE 10% 250 ML BAG IV PRN ×3 (05:54→19:03)
[2022-02-15] MEDS: HYDROCORTISONE 100 MG VIAL IV SCH ×3 (05:55→19:02)
[2022-02-15] MEDS: SODIUM CHLORIDE 0.9% 1,000 ML IV SCH (06:03)
[2022-02-15 06:56] LABS: Albumin 1.8 G/DL (3.4-5.0); Bilirubin,Total 0.7 MG/DL (0.20-1.00); Calcium 7.7 MG/DL (8.5-10.1); Osmolality,Calculated 300.1 MOS/KG (273-304); Phosphorous 5.8 MG/DL (2.5-4.9); Total Protein 4.3 G/DL (6.4-8.2)
[2022-02-15 06:58] LABS: Potassium 6.3 MMOL/L (3.5-5.1)
[2022-02-15] MEDS: DOPamine 800 MG/250 ML PREMIX IV PRN ×2 (07:12→15:36)
[2022-02-15] MEDS ORDERED: SODIUM BICARBONATE 50 MEQ/50 ML VIAL IV ONE ×2 (07:24→10:45)
[2022-02-15] MEDS: SODIUM BICARB INJ 100 MEQ in DEXTROSE 5% 1,000 ML IV SCH ×2 (08:33→19:04)
[2022-02-15] MEDS: predniSONE 5 MG TABLET PO SCH (08:41)
[2022-02-15] MEDS: SODIUM ZIRCONIUM CYCLOSILICATE 10 GM PACK PER TUBE SCH ×3 (08:41→21:55)
[2022-02-15] MEDS ORDERED: POTASSIUM PHOS/SOD PHOS POWDER 250 MG PACK PO SCH (09:00)
[2022-02-15 10:08] LABS: ABG Base Excess -13.1 MMOL/L (-2.5-2.5); ABG HCO3 14.1 MMOL/L (20-26); ABG Oxygen Saturation 88.8 % (95-100); ABG PCO2 33.4 MM HG (35-48); ABG PH 7.221 (7.35-7.45); ABG PO2 72.2 MM HG (80-95); ABG TCO2 12.7 MMOL/L (23-27)
[2022-02-15 10:28] LABS: Calcium 7.9 MG/DL (8.5-10.1); Osmolality,Calculated 299.8 MOS/KG (273-304)
[2022-02-15 10:31] LABS: Potassium 6.2 MMOL/L (3.5-5.1)
[2022-02-15] MEDS: MINERAL OIL/PETROLATUM OPH OINT 3.5 GM TUBE BOTH EYES SCH ×3 (11:20→21:55)
[2022-02-15] MEDS: ENOXAPARIN 80 MG/0.8 ML SYRINGE SUBCUT SCH (21:55)
[2022-02-15] MEDS: FAMOTIDINE 20 MG/2 ML VIAL IV SCH (21:55)
== END 2022-02-15 20:32 | disposition expired | DRG 208 ==
LOC: N.ED 17:51 → N.EDINP 18:52 → N.ICU 21:32
PROVIDERS: ADMIT Internal Medicine; ATTEND Internal Medicine